=== PATIENT | female | born 1930 ===

== ENCOUNTER 2017-10-01 08:48 | Inpatient (IN) | payer OTHER ==
[~2017-10-01] VITALS: Ht 157.5 cm; Wt 54.4 kg
[2017-10-01] MEDS ORDERED: GLIPIZIDE5 MG (09:20)
[2017-10-01] MEDS ORDERED: SERTRALINE HCL50 MG (09:22)
[2017-10-01] MEDS ORDERED: LOVASTATIN20 MG (09:22)
[2017-10-01] MEDS ORDERED: A/F PAIN RELIE500 MG (09:23)
[2017-10-01] MEDS ORDERED: ASPIRIN81 MG (09:23)
[2017-10-01] MEDS ORDERED: HYDRALAZINE HCL25 MG (09:23)
[2017-10-01] MEDS ORDERED: [UNRECOGNIZED DRUG - OTHER] (09:24)
[2017-10-01] MEDS ORDERED: TORSEMIDE10 MG (09:24)
== END 2017-10-16 17:40 | disposition expired | DRG 190 ==
LOC: ER 08:48 → MEDJ 22:24 → MEDI 22:24 → SEC-K 22:24 → MEDJ 10-02 01:09 → MEDI 10-02 02:02
PROC: 4A033R1 Measurement of Arterial Saturation, Peripheral, Percutaneous Approach (ICD-10-PCS; principal; 2017-10-01)
PROC: 3E0F7GC Introduction of Other Therapeutic Substance into Respiratory Tract, Via Natural or Artificial Opening (ICD-10-PCS; 2017-10-01)
PROC: B246ZZZ Ultrasonography of Right and Left Heart (ICD-10-PCS; 2017-10-10)
PROC: 4A12X4Z Monitoring of Cardiac Electrical Activity, External Approach (ICD-10-PCS; 2017-10-10)
PROC: 5A09457 Assistance with Respiratory Ventilation, 24-96 Consecutive Hours, Continuous Positive Airway Pressure (ICD-10-PCS; 2017-10-15)
DX: J44.1 Chronic obstructive pulmonary disease with (acute) exacerbation (principal); I50.33 Acute on chronic diastolic (congestive) heart failure; J90 Pleural effusion, not elsewhere classified; Z99.81 Dependence on supplemental oxygen; R09.02 Hypoxemia; E11.9 Type 2 diabetes mellitus without complications; I48.0 Paroxysmal atrial fibrillation; I11.0 Hypertensive heart disease with heart failure